=== PATIENT | female | born 1965 | race African-American/Black ===

== ENCOUNTER 2016-08-10 06:47 | Emergency (ER) | payer OTHER ==
--- NOTE | ~2016-08-10 | EKG ---
PATIENT: JAMI SETHI UNIT #: [id number] Ventricular Rate: 82 BPM Atrial Rate: 82 BPM P-R Interval: 136 ms QRS Duration: 96 ms Q-T Interval: 394 ms QTC Calculation(Bezet): 460 ms P [place]: 82 degrees Calculated R [place]: -15 degrees Calculated T [place]: -7 degrees Diagnosis Line: Normal sinus rhythm Diagnosis Line: Moderate voltage criteria for LVH, may be normal Diagnosis Line: variant Diagnosis Line: Baseline wander Diagnosis Line: When compared with ECG of 14-FEB-2016 13:14, Diagnosis Line: No significant change was found Diagnosis Line: Confirmed by KAMILLA CHE MD ([id number]) on 08/10/2016 Diagnosis Line: 11:02:42 PM INTERPRETING MD: YANE MARQUEZ
[2016-08-10 03:32] LABS: URINE SOURCE CLEAN CATCH
[2016-08-10 03:38] LABS: URINE APPEARANCE CLEAR; URINE BILIRUBIN NEG (NEG); URINE BLOOD NEG (NEG); URINE COLOR YELLOW; URINE GLUCOSE NEG (NEG); URINE KETONE NEG (NEG); URINE LEUKOCYTE ESTERASE NEG (NEG); URINE NITRATE NEG (NEG); URINE PROTEIN NEG (NEG); URINE SPECIFIC GRAVITY 1.024 (1.003-1.035); URINE UROBILINOGEN 0.2 MG/DL (NEG)
[2016-08-10 03:41] LABS: CULTURE INDICATED? NO
[2016-08-10 03:55] LABS: AMPHETAMINE NEG (NEG); BARBITURATES NEG (NEG); BENZODIAZEPINES NEG (NEG); COCAINE NEG (NEG); MARIJUANA NEG (NEG); OPIATES NEG (NEG); TRICYCLIC ANTIDEPRESSANTS NEG (NEG); U METHADONE NEG (NEG)
[~2016-08-10 06:47] MED LIST: ACETAMINOPHEN PO; ACIDOPHILUS1 EACH PO; ASPIRIN81 M2 PO; ATENOLOL PO; ATENOLOL50 MG PO; BUPROPION XL300 MG PO; CHEWABLE ASPIRI81 MG PO; COATED ASPIRIN325 M1 PO; COREG12.5 M1 PO; FISH OIL 1,0001 CA2 PO; GARLIC1 TAB PO; GLUCOPHAGE500 MG PO; HCTZ PO; HYDROCHLOROTHIA25 MG PO; IRON PO; LOSARTAN POTASS25 MG PO; MACROBID 100 M100 MG PO; METFORMIN HCL500 M1 PO; METFORMIN PO; MOBIC PO; MOBIC15 MG PO; MULTIVITAMIN1 UDCAP PO; NORCO 10-325 TA1 TAB PO; PRINIVIL20 M1 PO; TRAZODONE PO; WELLBUTRIN XL150 MG PO; ZOCOR PO; ZOCOR20 MG PO
== END 2016-08-10 07:05 | disposition home or self-care (01) ==
LOC: CED 06:47
PROVIDERS: Student in an Organized Health Care Education/Training Program
DX: S39.012A Strain of muscle, fascia and tendon of lower back, initial encounter (principal); I10 Essential (primary) hypertension; Z90.49 Acquired absence of other specified parts of digestive tract; M54.9 Dorsalgia, unspecified; G89.29 Other chronic pain; Z88.0 Allergy status to penicillin; Z88.2 Allergy status to sulfonamides; X58.XXXA Exposure to other specified factors, initial encounter; Y92.9 Unspecified place or not applicable
CPT/HCPCS: 80307; 81003; 93005; 99283

== ENCOUNTER → 2016-08-19 | Outpatient (CLI) | payer OTHER ==
[~2016-08-19] MED LIST changes: +COZAAR25 MG PO; +DESYREL50 MG PO; +NITROFURANTOIN100 M3 PO; +PARAFON FORTE500 MG PO
--- NOTE | ~2016-08-19 | CR184 ---
[facility] A Service of [facility] & [facility] RADIOLOGY TEXT RESULTS PATIENT: JAMI SETHI LOCATION: [facility] : 69 UNIT #: [id number] AGE: [address]: CLEVE MEEKS SEX: F ORDER DR: [id number] [facility] [address] [facility]. [place], [place] [address] [id number] MR#: [id number] Acc #: [id number] NAME: JAMI SETHI : 1965 SEX: F STUDY DATE/TIME: 08/19/2016 13:22 UNIT: [facility] ROOM: STUDY DESCRIPTION: CR Lumbar Spine Min 4 Views Attending Physician: Cleve Meeks M.D. Referring Physician: Cleve Meeks M.D. Ordering Physician: Cleve Meeks M.D. Primary Care Physician: Cleve Meeks M.D. MEDICAL IMAGING REPORT This report is preliminary unless electronic signature is present EXAM Lumbar spine, 5 views HISTORY Low back pain for 3 weeks. FINDINGS 5 views of the lumbar spine demonstrate minimal, grade I spondylolisthesis of L4 on L5 measuring 3 mm. Mild disc space narrowing at L4-5 and L5-S1. Mild degenerative facet arthropathy in the lower lumbar spine, but no spondylolysis. IMPRESSION 1. No acute findings. 2. Minimal, grade I spondylolisthesis of L4 on L5. 3. Mild degenerative facet arthropathy in the lower lumbar spine and mild hypertrophic spurring in the upper and lower lumbar spine. Dictated by... Steve Gonzales M.D. THIS IS AN ELECTRONICALLY VERIFIED REPORT Steve Gonzales M.D. at 08/19/2016 10:58 PM DFL/sally TD: 08/19/2016 20:34 JOB #: [id number] MEDICAL IMAGING REPORT Page 1 of 1 COPY
== END | disposition home or self-care (01) ==
LOC: CRAD 12:51
DX: M54.5 Low back pain (principal); M43.16 Spondylolisthesis, lumbar region; M47.816 Spondylosis without myelopathy or radiculopathy, lumbar region; M46.06 Spinal enthesopathy, lumbar region
CPT/HCPCS: 72110

== ENCOUNTER 2016-11-01 13:47 | Observation (INO) | payer OTHER ==
--- NOTE | ~2016-11-01 | CO ---
Unit #: [id number] #: [id number] Patient: JAMI SETHI [id number] [address] [place], [place] [address] [id number] MR#: [id number] NAME: JAMI SETHI ROOM: 322 Age: 51 Sex: F Admission Date: 11/01/2016 : 1965 Attending Physician: Talisha Yo M.D. Primary Care Physician: Gaib Meeks M.D. Consultation Date: 11/02/2016 CONSULTATION REPORT REASON FOR CONSULTATION Chest pain. HISTORY OF PRESENT ILLNESS This is a 51-year-old female with history of hypertension; diabetic; hyperlipidemia; morbid obesity; sleep apnea, uses a CPAP, who came to the emergency room after experiencing onset of shortness of breath with exertion along with some midsternal and substernal chest tightness. According to the patient, she had gotten out of a car, was walking across the parking lot to go into the store and she developed shortness of breath. She says she felt like she was getting tight in her midsternal upper chest airway. She said she returned back around and went back to the car. Her was with her. She said he was just concerned. She complained of some chest tightness and her breathing was labored. She said after she sat down in the car while in an air-conditioned and she felt better. He brought her into the hospital for further evaluation and management. She says she did not feel like it was breathing. She thought she heard some wheezing. She denied that the discomfort radiated up into her neck, bilateral jaws, shoulders, arms or elbow. She denies any palpitations. No dizziness, presyncope, or syncope. Not having any nausea, vomiting, diarrhea, or abdominal pain. No cough, fever, or chills. In the emergency room, the patient's blood pressure was 152/98, heart rate was 100, respirations 18, temperature 98.7, and O2 saturation was 100% on room air. Her EKG shows sinus rhythm. She does have some T-wave inversion in inferior leads, some left ventricular hypertrophy. Initial cardiac enzymes negative. The patient's labs; her D-dimer is 987, and they did a CT of the chest, it is negative for any large central pulmonary embolism. Cardiology has been consulted to assist with evaluation and management. PAST MEDICAL HISTORY 1. Hypertension. 2. Diabetes mellitus type 2. 3. Hyperlipidemia. 4. Obstructive sleep apnea, uses CPAP. 5. Diverticular disease. 6. Chronic back pain. 7. In 10/2015, cardiac cath by Dr. Patten revealed normal coronaries with EF 45%. 8. In 10/2015, 2D echo, LVEF of 50% to 55% with mild mitral regurgitation, mild tricuspid regurgitation, elevated RVSP 33 mmHg. Unit #: [id number] #: [id number] Patient: JAMI SETHI 9. Morbid obesity, 379 pounds with a BMI of 61. PAST SURGICAL HISTORY 1. Cholecystectomy. 2. Repair of a left femur fracture. 3. Sebaceous cyst removed from her back. 4. Tubal ligation. 5. Rods removed from the left femur last year. HOME MEDICATIONS Trazodone 100 mg p.o. daily at h.s., Cozaar 25 mg p.o. daily, simvastatin 20 mg p.o. daily, carvedilol 12.5 mg p.o. b.i.d., and Parafon Forte 500 mg p.o. at bedtime. ALLERGIES 1. Penicillin. 2. Sulfonamides. SOCIAL HISTORY The patient lives with her spouse. She is fairly sedentary. She sometimes has to use a cane for ambulation. Had been a lifelong nonsmoker. No alcohol or illicit drug abuse. FAMILY HISTORY Her father when she was a young child. She does not know exactly the cause of . Her mother was in generally well health. Her siblings; she has an older brother who has cardiac stents. REVIEW OF SYSTEMS See details in HPI. PHYSICAL EXAMINATION GENERAL: Ms. Sethi is a 51-year-old female, in no acute respiratory distress. She is awake, alert, and oriented. VITAL SIGNS: Blood pressure is currently 112/58, heart rate 78, respirations 16, temperature 98.0, and O2 saturations 99% on room air. NECK: Trachea midline. No thyromegaly or lymphadenopathy. Normal carotid upstrokes. No jugular venous distention. HEART: S1 and S2. Regular rate and rhythm. No clicks, murmurs, or rubs. LUNGS: Diminished, otherwise clear. ABDOMEN: Obese, soft, and nontender. EXTREMITIES: Pedal pulses are palpable. 1+ pedal edema. DIAGNOSTIC STUDIES LABORATORY RESULTS: Her glucose is 207, BUN 12, creatinine 0.6, eGFR is 124.1, sodium 135, potassium 3.6, chloride 104, CO2 of 24, calcium is 8.6, total protein 7.6, albumin 3.7, bilirubin total 0.4, AST 21, ALT 20, and alkaline phosphatase is 96. BNP is 13. WBC is 5.5, hemoglobin 11.5, hematocrit 35.9, and platelets are 240. Initial cardiac enzymes; CK-MB was less than 1.0 and troponin was less than 0.05. CK-MB is less than 1.0 and troponin less than 0.05. Repeat cardiac enzymes this morning; CK total is 83 and troponin less than 0.03. INR is 1.0. D-dimer 987. Urinalysis shows 2+ leukocyte esterase, 0.2 urobilinogen, 25 to 50 wbc's, and 1+ bacteria. IMAGING STUDIES: Chest x-ray; nothing acute. CT of the chest with IV contrast reveals nothing acute. No active disease in the lungs. No pulmonary embolism identified. Unit #: [id number] #: [id number] Patient: JAMI SETHI CARDIOVASCULAR STUDIES: EKG shows normal sinus rhythm with ventricular rate 92 beats per minute, left ventricular hypertrophy, T-wave inversion in lead III, poor R-wave progression. IMPRESSION 1. Chest tightness-atypical chest pain. 2. Dyspnea with exertion, questionable. 3. Urinary tract infection. 4. Elevated D-dimer. 5. Hypertension. 6. Diabetes mellitus, type 2. 7. Hyperlipidemia. 8. Obstructive sleep apnea. 9. Chronic back pain. 10. Diverticular disease. 11. Normal coronaries per cardiac cath, 10/2015. 12. Left ventricular ejection fraction of 50% to 55% on 2D echo, 10/2015 with elevated RVSP 33 mmHg. 13. Morbid obesity with a BMI of 61. PLAN 1. Cardiology consult to evaluate the patient's chest pain. 2. The patient's chest pain is more pleuritic in nature. She became short of breath and then she has had a tightness and felt like she was wheezing. The patient says her tightness in the upper chest airway was relieved after she had a nebulizer treatment. More likely, her symptoms are possibly from some type of asthmatic bronchitis. She continues to be under treatment with hospitalist, also treatment for her UTI. 3. Cardiac enzymes are negative. Her EKG does not show anything acute. Her cardiac cath last year was normal coronaries. Her heart rate and blood pressure are currently stable. No signs or symptoms of acute congestive heart failure. Continue the patient on her current medications, which includes carvedilol, Cozaar, and statin. 4. Encourage the patient healthy lifestyle changes such as exercise and lose weight. 5. At this time, there is no further cardiac workup needed. Further recommendations pending. Thank you very much for allowing us to assist in care. Dictated by... Lyssa Rao/nini TD: 11/02/2016 12:22 JOB #: [id number] Unit #: [id number] #: [id number] Patient: JAMI SETHI CONSULTATION REPORT Page 1 of 1 X Sarah Pavon APRN CONSULTATION REPORT
--- NOTE | ~2016-11-01 | CT16 ---
[facility] A Service of [facility] / [facility] RADIOLOGY TEXT RESULTS PATIENT: JAMI SETHI LOCATION: [facility] : [birth year] UNIT #: [id number] AGE: [address]: Talisha Yo MD SEX: F ORDER DR: [id number] [facility] [address] [facility]. [place], [place] [address] [id number] I MR#: [id number] Acc #: [id number] NAME: JAMI SETHI : 1965 SEX: F STUDY DATE/TIME: 11/01/2016 18:17 UNIT: [facility] PCU ROOM: [facility] STUDY DESCRIPTION: CT Angio Chest for PE Attending Physician: Talisha Yo M.D. Ordering Physician: Jami Corbin M.D. Primary Care Physician: Gabi Meeks M.D. MEDICAL IMAGING REPORT This report is preliminary unless electronic signature is present EXAM CT angiogram chest with IV contrast HISTORY Elevated D-dimer. Chest pain and left arm pain today. The CT exam was performed with one or more of the following radiation dose reduction techniques: automatic exposure control, adjustment of mA and/or kV according to patient size, and iterative reconstruction. FINDINGS IV contrast and CT angiogram of the chest was performed with 3-D reconstructions. No pulmonary infiltrates. No pleural effusions. Incidental 1 cm calcified granuloma posterior left upper lobe. No adenopathy. No pericardial thickening or effusion. Normal caliber thoracic aorta. No pulmonary embolus is identified. Sensitivity is partly limited by respiratory motion artifact, patient size and contrast bolus density. Normal-caliber pulmonary arteries. IMPRESSION 1. No acute findings are identified in the chest. 2. No active disease in the lungs. No pulmonary embolus is identified. Sensitivity is partly limited by respiratory motion artifact and suboptimal IV contrast bolus density, particularly limiting sensitivity for evaluating peripheral pulmonary emboli. No large central pulmonary emboli. Dictated by... [facility] A Service [facility] RADIOLOGY TEXT RESULTS PATIENT: JAMI SETHI LOCATION: [facility] : 69 UNIT #: [id number] AGE: [address]: Talisha Yo MD SEX: F ORDER DR: Steve Gonzales M.D. THIS IS AN ELECTRONICALLY VERIFIED REPORT Steve Gonzales M.D. at 11/02/2016 3:09 PM DFL/alicia TD: 11/02/2016 07:33 JOB #: [id number] MEDICAL IMAGING REPORT Page 1 of 1 COPY
--- NOTE | ~2016-11-01 | EKG ---
PATIENT: JAMI SETHI UNIT #: [id number] Ventricular Rate: 92 BPM Atrial Rate: 92 BPM P-R Interval: 140 ms QRS Duration: 98 ms Q-T Interval: 370 ms QTC Calculation(Bezet): 457 ms P [place]: 63 degrees Calculated R [place]: -15 degrees Calculated T [place]: 0 degrees Diagnosis Line: Normal sinus rhythm Diagnosis Line: Moderate voltage criteria for LVH, may be normal Diagnosis Line: variant Diagnosis Line: Borderline ECG Diagnosis Line: When compared with ECG of 10-AUG-2016 01:42, Diagnosis Line: No significant change was found Diagnosis Line: Confirmed by MELO RUSS MD ([id number]) on Diagnosis Line: 11/01/2016 7:17:09 PM INTERPRETING : LORENZO
--- NOTE | ~2016-11-01 | CR72 ---
[facility] A Service of [facility] & [facility] / [facility] RADIOLOGY TEXT RESULTS PATIENT: JAMI SETHI LOCATION: [facility] 322-01 : 69 UNIT #: [id number] AGE: [address]: Talisha Yo MD SEX: F ORDER DR: [id number] [facility] [address] [place], [place] [address] [id number] I MR#: [id number] Acc #: [id number] NAME: JAMI SETHI : 1965 SEX: F STUDY DATE/TIME: 11/01/2016 15:14 UNIT: [address] ROOM: [facility] STUDY DESCRIPTION: CR Chest Single View Portable Attending Physician: Claudia Mahan M.D. Ordering Physician: Jami Corbin M.D. Primary Care Physician: Gabi Meeks M.D. MEDICAL IMAGING REPORT This report is preliminary unless electronic signature is present EXAM Single view of the chest dated 11/01/2016. COMPARISON Single view chest dated 03/22/2016. HISTORY Shortness of air, chest pain for a week. FINDINGS Single view of the chest was obtained. A single AP portable view of the chest shows both lungs to be clear. The heart is normal in size. The mediastinal contour is normal. No significant bone abnormalities are seen. IMPRESSION Normal portable chest. Dictated by... Alexandra Cueva M.D. THIS IS AN ELECTRONICALLY VERIFIED REPORT Alexandra Cueva M.D. at 11/02/2016 8:43 PM CPR/psc TD: 11/02/2016 00:30 JOB #: [id number] MEDICAL IMAGING REPORT Page 1 of 1 COPY
--- NOTE | ~2016-11-01 | BMI ---
[facility] Nutrition Therapy DATE: 11/02/16 Patient: JAMI SETHI Physician: MANUEL Address: [address] [place] [address] Room/Bed: [address] [place] [address], Zip: [place] [address] Admit Date: 11/01/16 Date of : [birth year] Height: 5 6 Weight: 379 172 HIGH BMI NOTE: ANTHROPOMETRICS: HT: 66" WT: 172 KG BMI: 61.2 DIET: HEART HEALTHY RECOMMENDATIONS: 1. ADD CONSISTENT CARBOHYDRATE DIET RESTRICTION TO CURRENT DIET IN ORDER TO PROMOTE GYLCEMIC CONTROL AND GRADUAL WEIGHT LOSS TOWARDS A HEALTHY BMI RANGE. Respectfully, LONA OSORIO RD, LD [facility] cc: client file
--- NOTE | ~2016-11-01 | HP ---
Unit #: [id number] #: [id number] Patient: JAMI SETHI [id number] [address] [place], [place] [address] [id number] E MR#: [id number] NAME: JAMI SETHI ROOM: Age: 51 Sex: F Admission Date: 11/01/2016 : 1965 Attending Physician: Jami Corbin M.D. Primary Care Physician: Gabi Meeks M.D. HISTORY AND PHYSICAL CHIEF COMPLAINT Chest pain and left shoulder pain. HISTORY OF PRESENT ILLNESS The patient is a 51-year-old female, with a past medical history of hypertension, hyperlipidemia, diabetes, diverticular disease, obstructive sleep apnea, arrhythmia, morbid obesity, brought to the emergency room complaining of the chest pain. The patient stated the pain is sharp and is in the left precordial area associated with heavy breathing. The patient also complains of the pain at the left shoulder, associated nausea. The patient had multiple admissions in the past for the same presentation. The patient had a cardiac cath back in 2015 from the record that showed the EF of 45% and normal coronary arteries on October 27, 2015. The patient was found to have a UTI with 2+ leukocyte esterase and 25 to 50 urine WBCs and 1+ urine bacteria. The patient is awaiting a CT of the chest to rule out PE and the patient is being admitted for the above reasons. The patient stated the patient is having dysuria and has been taking one of her parent's antibiotics that includes Flagyl. PAST MEDICAL HISTORY History of hypertension, hyperlipidemia, diabetes, diverticular disease, obstructive sleep apnea on CPAP, history of arrhythmia, morbid obesity with a BMI of 62. PAST SURGICAL HISTORY Cardiac cath on October 27, 2015, cholecystectomy, left femur surgery, sebaceous cyst removal, tubal ligation, colonoscopy, . SOCIAL HISTORY The patient lives with her family. There is no tobacco or alcohol use. She walks without assistance. FAMILY HISTORY Notable for for the multiple (1) . ALLERGIES Penicillin and sulfa. HOME MEDICATION From the records, she is on: 1. Metformin. 2. Losartan. 3. Carvedilol. 4. Simvastatin. 5. BiPAP machine at night. Unit #: [id number] #: [id number] Patient: JAMI SETHI REVIEW OF SYMPTOMS A 14-point review of systems was performed and only pertinent positive findings are described above. Remaining are negative. PHYSICAL EXAMINATION GENERAL APPEARANCE: The patient is lying on a bed, not in acute distress. VITAL SIGNS: Temperature 98.7. Pulse 100. Respiratory rate 18. Blood pressure 152/98. Sating 100% at room air. HEENT: Head: Atraumatic, normocephalic. ENT: Pupils equal, round and reactive to light and accommodation. Extraocular movements are intact. NECK: Supple. LUNGS: Decreased air entry at the bases. HEART: Regular rate and rhythm. CHEST: The patient has pleuritic tenderness on the left side. ABDOMEN: Soft. Positive bowel sounds. EXTREMITIES: No cyanosis. No clubbing. NEUROLOGIC: Alert, awake, oriented. No gross focal motor deficit. DIAGNOSTIC STUDIES LABORATORY: Troponin less than 0.05. INR one. BNP 13. UA shows 2+ leukocyte esterase, 25 to 50 urine WBC, 1+ urine bacteria. Sodium 135, potassium 3.6, chloride 104, bicarb 24, glucose 207, BUN 12, creatinine 0.6, AST 21, ALT 20, alkaline phosphatase 96. Troponin less than 0.05. WBC 5.5, hemoglobin 11.5, hematocrit 35.9, platelets 240. PLAN To admit the patient to the observation with telemetry. The patient will receive IV antibiotics for the UTI and follow with a CT chest to rule out PE and continue with Accu-Cheks and low dose sliding scale. We will have serial troponins and Cardiology consult for chest pain and further recommendations will follow. Dictated by Chai Shah TD: 11/01/2016 18:10 JOB #: [id number] HISTORY AND PHYSICAL Page 1 of 1 X JASON PABLO MD X HISTORY AND PHYSICAL
[~2016-11-01 13:47] MED LIST changes: -COZAAR25 MG PO; -DESYREL50 MG PO; -NITROFURANTOIN100 M3 PO; -PARAFON FORTE500 MG PO
[2016-11-01 15:01] LABS: BASOPHIL% 0.8 % (0-2.5); EOSINOPHIL# 0.4 X10e3 (0-0.7); EOSINOPHIL% 7.5 % (0.0-7.0); HEMATOCRIT 35.9 % (35.0-45.0); HEMOGLOBIN 11.5 gm/dL (12.0-16.0); LYMPHOCYTE# 1.3 X10e3 (1.0-3.5); LYMPHOCYTE% 23.7 % (17.0-45.0); MEAN CELL VOLUME 85.7 FL (83-96); MEAN CORPUSCULAR HEMOGLOBIN 27.4 PG (28-34); MEAN CORPUSCULAR HGB CONC 31.9 g/dL (30-36); MEAN PLATELET VOLUME 9.5 FL (6.5-11.5); MONOCYTE# 0.3 X10e3 (0-1.0); MONOCYTE% 4.8 % (3.0-12.0); NEUTROPHIL# 3.5 X10e3 (1.5-7.1); NEUTROPHIL% 63.2 % (40-75); PLATELET COUNT 240 X10e3 (140-420); RED BLOOD COUNT 4.19 X10e (3.90-5.30); RED CELL DISTRIBUTION WIDTH 15.2 % (11.0-15.5); WHITE BLOOD COUNT 5.5 X10e3 (4.0-10.5)
[2016-11-01 15:03] LABS: DIFF IND NO
[2016-11-01 15:10] LABS: POC - CKMB <1.0 ng/mL (0.0-7.9); POC - TROPONIN <0.05 ng/mL (<=0.05)
[2016-11-01 15:12] LABS: URINE SOURCE CLEAN CATCH
[2016-11-01 15:19] LABS: ALBUMIN SERUM 3.7 g/dL (3.5-5.0); BILIRUBIN, DIRECT 0.1 mg/dL (0.0-0.2); BILIRUBIN,INDIRECT 0.3 mg/dL (0.0-0.9); BILIRUBIN,TOTAL 0.4 mg/dL (0.2-2.0); CALCIUM SERUM 8.6 mg/dL (8.4-10.2); CREATININE SERUM 0.6 mg/dL (0.6-1.4); GLOM FILT RATE Estimated 124.1 mL/min (>60); POTASSIUM 3.6 mmol/L (3.5-5.1); PROTEIN TOTAL SERUM 7.6 g/dL (6.0-8.3)
[2016-11-01 15:20] LABS: URINE APPEARANCE CLEAR; URINE BILIRUBIN NEG (NEG); URINE BLOOD NEG (NEG); URINE COLOR YELLOW; URINE GLUCOSE NEG (NEG); URINE KETONE NEG (NEG); URINE LEUKOCYTE ESTERASE 2+ (NEG); URINE NITRATE NEG (NEG); URINE PH 5.5 (5-8); URINE PROTEIN NEG (NEG); URINE UROBILINOGEN 0.2 MG/DL (NEG)
[2016-11-01 15:22] LABS: CULTURE INDICATED? YES; URINE BACTERIA AUWI 1+ (NEGATIVE); URINE SQUAMOUS EPITHELIAL CELL NONE SEEN /[HPF]; UWBCS1 AUWI 25-50 (0-5)
[2016-11-01 15:33] LABS: PROTHROMBIN TIME (PATIENT) 10.8 SECONDS (10.0-11.7)
[2016-11-01 16:50] LABS: POC - CKMB <1.0 ng/mL (0.0-7.9); POC - TROPONIN <0.05 ng/mL (<=0.05)
[2016-11-01] MEDS ORDERED: COZAAR25 MG PO (17:49)
[2016-11-01] MEDS ORDERED: DESYREL50 MG PO (17:49)
[2016-11-01] MEDS ORDERED: ZOCOR20 MG PO (17:50)
[2016-11-01] MEDS ORDERED: COREG12.5 M1 PO (17:51)
[2016-11-01] MEDS ORDERED: PARAFON FORTE500 MG PO (17:51)
[2016-11-02] MEDS ORDERED: NITROFURANTOIN100 M3 PO (14:41)
== END 2016-11-02 17:54 | disposition home or self-care (01) | DRG 313 ==
LOC: CED 13:47 → CEDOF 17:45 → CED 19:44 → CEDOF 19:44 → C3A PCU 20:59
PROVIDERS: Student in an Organized Health Care Education/Training Program
DX: R07.89 Other chest pain (principal); R06.00 Dyspnea, unspecified; N39.0 Urinary tract infection, site not specified; I10 Essential (primary) hypertension; E11.9 Type 2 diabetes mellitus without complications; E78.5 Hyperlipidemia, unspecified; G47.33 Obstructive sleep apnea (adult) (pediatric); E66.01 Morbid (severe) obesity due to excess calories; Z68.44 Body mass index [BMI] 60.0-69.9, adult; M54.9 Dorsalgia, unspecified; G89.29 Other chronic pain; K57.90 Diverticulosis of intestine, part unspecified, without perforation or abscess without bleeding; Z79.84 Long term (current) use of oral hypoglycemic drugs
CPT/HCPCS: 36415; 71010; 71275; 80048; 80076; 81003; 82553; 82947; 83880; 84484; 85025; 85379; 85610; 85730; 87086; 93005; 94640; 94760; 99285; G0378; J0696; J1650; J1815; J1956; Q9967

== ENCOUNTER 2017-01-01 14:38 | Emergency (ER) | payer OTHER ==
[~2017-01-01] VITALS: Ht 167.6 cm; Wt 172.0 kg
--- NOTE | ~2017-01-01 | CT2 ---
[facility] A Service of [facility] RADIOLOGY TEXT RESULTS PATIENT: JAMI SETHI LOCATION: [facility] : 69 UNIT #: [id number] AGE: [address]: Tomás Toth MD SEX: F ORDER DR: [id number] [facility] [address] [place], [place] [address] [id number] E MR#: [id number] Acc #: [id number] NAME: JAMI SETHI : 1965 SEX: F STUDY DATE/TIME: 01/01/2017 16:41 UNIT: [facility] ROOM: STUDY DESCRIPTION: CT Abd and Pelv W Cont Attending Physician: Felipe Toth M.D. Ordering Physician: Ed Ramirez Machuca M.D. Primary Care Physician: Gabi Meeks M.D. MEDICAL IMAGING REPORT This report is preliminary unless electronic signature is present EXAM CT abdomen and pelvis with contrast DATE 01/01/2017 HISTORY Right-side abdominal pain with nausea for 1 week, worse today. Additional history of cholecystectomy, cardiac disease, hypertension and diabetes. COMPARISON CT abdomen and pelvis with contrast 03/22/2016. PROCEDURE 5 mm axial images from the lung bases to the lesser trochanters after intravenous and enteric contrast administration. Sagittal and coronal reformatted images were obtained. This CT exam was performed with one or more of the following radiation dose reduction techniques: automatic control, adjustment of mA and/or kV according to patient size, and iterative reconstruction. FINDINGS ABDOMEN FINDINGS: Lung bases are clear. Liver, spleen, pancreas, adrenals and kidneys are normal. Cholecystectomy. Normal appendix. Bowel appears nonthickened, nondilated, noninflamed. No free air, or free fluid is identified. No pathologically enlarged lymph nodes are seen. PELVIS FINDINGS: Urinary bladder, uterus and rectum appear unremarkable. Left hip ORIF changes with adjacent heterotopic ossification adjacent to the greater trochanter. No acute osseous abnormalities are identified. Severe canal stenosis at L4-5 secondary to advanced facet arthropathy. Grade 1 anterolisthesis L4 upon L5. [facility] A Service of [facility] RADIOLOGY TEXT RESULTS PATIENT: JAMI SETHI LOCATION: [facility] : [birth year] UNIT #: [id number] AGE: [address]: Tomás Toth MD SEX: F ORDER DR: IMPRESSION 1. No acute findings. No CT explanation for the patient's right-side abdominal pain. The appendix appears normal. 2. Cholecystectomy 3. Left hip ORIF. 4. Severe canal stenosis at L4-5 with advanced facet arthropathy and Grade 1 anterolisthesis L4 upon L5. Dictated by... Marla Valle M.D. THIS IS AN ELECTRONICALLY VERIFIED REPORT Marla Valle M.D. at 01/02/2017 1:54 PM CHANEL/angela TD: 01/02/2017 03:48 JOB #: [id number] MEDICAL IMAGING REPORT Page 1 of 1 COPY
[~2017-01-01 14:38] MED LIST changes: +COZAAR25 MG PO; +DESYREL50 MG PO; +NITROFURANTOIN100 M3 PO; +PARAFON FORTE500 MG PO
[2017-01-01 15:24] LABS: BASOPHIL% 0.8 % (0-2.5); EOSINOPHIL# 0.5 X10e3 (0-0.7); EOSINOPHIL% 8.9 % (0.0-7.0); HEMATOCRIT 36.2 % (35.0-45.0); HEMOGLOBIN 11.9 gm/dL (12.0-16.0); LYMPHOCYTE# 1.6 X10e3 (1.0-3.5); LYMPHOCYTE% 25.6 % (17.0-45.0); MEAN CELL VOLUME 84.1 FL (83-96); MEAN CORPUSCULAR HEMOGLOBIN 27.6 PG (28-34); MEAN CORPUSCULAR HGB CONC 32.8 g/dL (30-36); MEAN PLATELET VOLUME 8.8 FL (6.5-11.5); MONOCYTE# 0.4 X10e3 (0-1.0); MONOCYTE% 6.7 % (3.0-12.0); NEUTROPHIL# 3.6 X10e3 (1.5-7.1); PLATELET COUNT 255 X10e3 (140-420); RED BLOOD COUNT 4.31 X10e (3.90-5.30); RED CELL DISTRIBUTION WIDTH 15.1 % (11.0-15.5); WHITE BLOOD COUNT 6.1 X10e3 (4.0-10.5)
[2017-01-01 15:28] LABS: DIFF IND NO
[2017-01-01 15:46] LABS: ALBUMIN SERUM 3.8 g/dL (3.5-5.0); BILIRUBIN, DIRECT 0.1 mg/dL (0.0-0.2); BILIRUBIN,INDIRECT 0.2 mg/dL (0.0-0.9); BILIRUBIN,TOTAL 0.3 mg/dL (0.2-2.0); CALCIUM SERUM 9.2 mg/dL (8.4-10.2); CREATININE SERUM 0.5 mg/dL (0.6-1.4); GLOM FILT RATE Estimated 131.7 mL/min (>60); POTASSIUM 3.9 mmol/L (3.5-5.1); PROTEIN TOTAL SERUM 8.1 g/dL (6.0-8.3)
[2017-01-01 16:15] LABS: URINE SOURCE CLEAN CATCH
[2017-01-01 16:20] LABS: URINE APPEARANCE CLEAR; URINE BILIRUBIN NEG (NEG); URINE BLOOD NEG (NEG); URINE COLOR YELLOW; URINE GLUCOSE 500 MG/DL (NEG); URINE KETONE NEG (NEG); URINE LEUKOCYTE ESTERASE 2+ (NEG); URINE NITRATE NEG (NEG); URINE PROTEIN NEG (NEG); URINE UROBILINOGEN 0.2 MG/DL (NEG)
[2017-01-01 16:22] LABS: CULTURE INDICATED? YES; URINE BACTERIA AUWI 1+ (NEGATIVE); URINE SQUAMOUS EPITHELIAL CELL OCC /[HPF]
[2017-01-01 16:32] LABS: URBCS1 AUWI 0-2 /[HPF] (0-2)
== END 2017-01-01 18:09 | disposition home or self-care (01) ==
LOC: CED 14:38
PROVIDERS: Emergency Medicine
DX: R10.9 Unspecified abdominal pain (principal); Z88.0 Allergy status to penicillin; Z88.1 Allergy status to other antibiotic agents; Z88.2 Allergy status to sulfonamides; Z79.899 Other long term (current) drug therapy; D64.9 Anemia, unspecified; D32.9 Benign neoplasm of meninges, unspecified; Z90.49 Acquired absence of other specified parts of digestive tract
CPT/HCPCS: 36415; 74177; 80048; 80076; 81003; 82150; 83690; 84703; 85025; 87086; 96360; 99284; Q9967